=== PATIENT | female | born 1965 | race Caucasian/White ===

== ENCOUNTER → 2017-09-21 21:45 | Outpatient (CLI) | payer OTHER, SELFPAY ==
[2017-09-24 13:48] LABS: HPV Reflexed? NOT INDICATED
== END ==
PROVIDERS: Family Provider Internal Medicine; PCP Internal Medicine; Visit Provider Obstetrics & Gynecology
DX: Z12.4 Encounter for screening for malignant neoplasm of cervix (principal)
CPT/HCPCS: 88175; G0145

== ENCOUNTER → 2017-10-01 09:07 | Outpatient (CLI) | payer OTHER, SELFPAY ==
--- NOTE | 2017-10-01 09:11 | US_ITS ---
STUDY: ULTRASOUND BREAST - RIGHT REASON FOR EXAM: Female, 52 years old. Nipple discharge in the right breast. TECHNIQUE: Axial and longitudinal images of the RIGHT breast were performed with a high resolution ultrasound transducer. COMPARISON: Comparison is made with prior mammogram done earlier in the day. FINDINGS: RIGHT Breast: The retroareolar region of the right breast was examined by ultrasound. There is homogeneous fibroglandular tissue. No mass lesion is seen. US/Breast Limited Unilateral IMPRESSION: Unremarkable sonographic examination of the breast as described. ASSESSMENT CATEGORY: BIRADS Category 1: Negative. A letter regarding these results will be sent to the patient by the facility within 30 days. Electronically Signed: Dustin Campbell MD at 13:55 EDT Tel [phone], Service support ,
--- NOTE | 2017-10-01 09:11 | BI_ITS ---
MAMMOGRAPHY - UNILATERAL DIAGNOSTIC: RIGHT BREAST REASON FOR EXAM: Female, 52 years old. Right nipple discharge. PERTINENT HISTORY: Sister with breast cancer. Aunts with breast cancer. TECHNIQUE: Digital unilateral breast ralph (3D mammographic acquisition) in the CC and MLO projections. 2-D mediolateral oblique (MLO) and craniocaudad (CC) views of both breasts were obtained. CAD: Full Field Digital Mammography with Computer Added Detection was performed. COMPARISON: Comparison is made with prior examination of March 17, 2017. FINDINGS: Breast Composition: There are scattered areas of fibroglandular density. There are no dominant masses or suspicious calcifications. No other significant abnormalities are identified. There has been no significant change since the prior study. BI/DIAG MAMM W/CAD, UNILAT IMPRESSION: Stable unilateral diagnostic mammogram. With the patient's history of the right breast discharge, correlation with ultrasound is recommended. ASSESSMENT CATEGORY: BIRADS Category 0: Incomplete. Need additional imaging evaluation. A letter regarding these results will be sent to the patient by the facility within 30 days. Approximately 10% of breast cancers are not detected by mammography. A normal mammogram should not delay biopsy of a clinically suspicious abnormality. Electronically Signed: Dustin Campbell MD at 8:05 EDT Tel [phone], Service support ,
== END ==
PROVIDERS: Family Provider Internal Medicine; PCP Internal Medicine; Visit Provider Obstetrics & Gynecology
DX: N64.89 Other specified disorders of breast (principal)
CPT/HCPCS: 76642; 77061; 77065; G0279

== ENCOUNTER → 2021-04-18 16:19 | Outpatient (CLI) | payer OTHER, SELFPAY ==
--- NOTE | 2021-04-18 15:15 | EMB_PTH ---
PATIENT: GAVIN HEBERT LOC: [facility] U#:[id number] AGE/SX: 60/F ROOM: RE04/18/[address]: Dr. Justin Giles MD : 1965 BED: DIS: SPEC #: [id number] RECD: 04/18/21 16:35 STATUS: CHRISTIANO REMartin #: [id number] LUCILA: 04/18/21 15:[address]: Justin Giles DEPT: SURGICAL PATHOLOGY RECD BY: Mary Frias ENTERED: 04/19/21 08:42 SP TYPE: ENDOM BX/C IGGY DR: Dr. Gurmeet Hackett MD Tissues: Endometrium, NOS Procedures: Surgery Specimen Level IV HEADER OPERATION: Endometrial biopsy PRE-OP DIAGNOSIS: N95.0 TISSUE SUBMITTED: Endometrial biopsy MICROSCOPIC DIAGNOSIS Endometrial biopsy: Scant strips of benign endometrial epithelium, blood and mucous. See comment. DARON:clayton 04/22/2021 COMMENT The specimen predominantly consists of blood and mucous. The findings are consistent with atrophic endometrium. Correlation with clinical findings and appropriate follow up are necessary. MICROSCOPIC DESCRIPTION Slides are reviewed. GROSS DESCRIPTION Received in fixative is one container labeled with the patient's name and designated EM biopsy. The specimen consists of multiple fragments of hemorrhagic mucoid tissue that in aggregate measure 1.5 x 1 x 0.2 cm. The specimen is totally submitted in one cassette. / SJ:clayton 04/19/21 TC:4 CPT: 37434
[2021-04-24 16:14] LABS: HPV Reflexed? NOT INDICATED
== END ==
PROVIDERS: PCP Internal Medicine; Visit Provider Obstetrics & Gynecology
DX: N95.0 Postmenopausal bleeding (principal); Z12.4 Encounter for screening for malignant neoplasm of cervix
CPT/HCPCS: 88175; 88305; G0145

== ENCOUNTER → 2021-05-13 11:58 | Outpatient (CLI) | payer OTHER, SELFPAY ==
--- NOTE | 2021-05-13 12:01 | BI_ITS ---
MAMMOGRAPHY - BILATERAL SCREENING REASON FOR EXAM: Female, 55 years old. Routine annual screening examination. PERTINENT HISTORY: Sister with breast cancer. Aunts with breast cancer. Status post left stereotactic breast biopsy. TECHNIQUE: Digital bilateral breast marta (3D mammographic acquisition) in the CC and MLO projections. 2-D mediolateral oblique (MLO) and craniocaudad (CC) views of both breasts were obtained. CAD: Full Field Digital Mammography with Computer Added Detection was performed. COMPARISON: Comparison is made with prior examination dated 01/11/2017 and 03/17/2017. FINDINGS: Breast Composition: There are scattered areas of fibroglandular density. There are no dominant masses or suspicious calcifications. A tissue clip marker is once again seen in the deep slightly upper medial portion of the left breast. No other significant abnormalities are identified. There has been no significant change since the prior study. BI/SCRN MAMM (CAD)W/MARTA BILAT IMPRESSION: Stable bilateral screening mammogram. Yearly follow-up mammogram recommended. (A) ASSESSMENT CATEGORY: BIRADS Category 2: Benign. A letter regarding these results will be sent to the patient by the facility within 30 days. Approximately 10% of breast cancers are not detected by mammography. A normal mammogram should not delay biopsy of a clinically suspicious abnormality. [id number] Electronically Signed: Dustin Campbell MD at 13:15 EST , Service support ,
== END ==
PROVIDERS: PCP Internal Medicine; Referring Provider Obstetrics & Gynecology; Visit Provider Obstetrics & Gynecology
DX: Z12.31 Encounter for screening mammogram for malignant neoplasm of breast (principal)
CPT/HCPCS: 77063; 77067

== ENCOUNTER 2021-07-03 22:21 | Emergency (ER) | payer OTHER, SELFPAY ==
[2021-07-03 22:22] VITALS: BP 128/80; PULSE 92; RESP 18; TEMP 35.8; O2SAT 93; BMI 35.7
--- NOTE | 2021-07-03 22:45 | CT_ITS ---
STUDY: CT ABDOMEN AND PELVIS WITHOUT CONTRAST REASON FOR EXAM: Female, 56 years old. Kidney Stone RADIATION DOSAGE (If Supplied By Facility): CTDIvol = ( 21.38 ) mGy, DLP = ( 1116.24 ) mGycm TECHNIQUE: Transaxial images were obtained from the dome of the diaphragm to the symphysis pubis without oral contrast, and without intravenous contrast. Sagittal and coronal images were reconstructed. Individualized dose optimization techniques were used for this CT. COMPARISON: None. FINDINGS: Subtle bibasilar airspace disease. The visualized portions of the heart are within normal limits. Normal liver. Normal gallbladder and extrahepatic biliary system. Normal spleen. Normal pancreas. Normal bilateral adrenal glands. Mild to moderate right hydronephrosis and moderate hydroureter. There are 2 stones in the distal right ureter, 1 at the UVJ measuring 13 x 10 mm and the second just behind it measuring 6.3 x 6.6 mm. Punctate nonobstructing left-sided nephroliths measuring between 3 and 6 mm. Normal visualized stomach. Normal small intestine. There are multiple colonic diverticula consistent with diverticulosis. The appendix is visualized and appears normal. Normal abdominal aorta. Normal inferior vena cava. Normal retroperitoneum. Normal urinary bladder. Normal visualized uterus. Normal abdominal wall. Normal osseous structures. CT/Abdomen/Pelvis without Cont IMPRESSION: Right-sided urolithiasis with stones at the distal right ureter and UVJ as detailed above. Nonobstructing left-sided nephrolithiasis Electronically Signed: Tanvir Fraga DO at 23:40 EST Tel , Service support ,
[2021-07-03 22:57] LABS: Absolute Lymphocyte Count 1.29 X10^3/uL (0.83-4.51); Absolute Neutrophil Count 6.1 X10^3/uL (2.0-7.7); Basophil# 0.03 X10^3/uL; Basophil% 0.4 % (0-1); Eosinophil# 0.17 X10^3/uL; Hematocrit 41.5 % (37-47); Hemoglobin 13.3 g/dL (12.0-15.0); Lymphocyte # 1.29 X10^3/ul (0.83-4.51); Lymphocyte % 15.4 % (19-41); Mean Corpuscular Hgb 28.3 pg (27.0-32.0); Mean Corpuscular Volume 88.3 fL (81-99); Mean Platelet Vol. 9.2 fl (6.2-12.0); Monocyte# 0.72 X10^3/uL; Monocyte% 8.6 % (0-10); NRBC Flagged by Analyzer 0 % (0-5); Neutrophil # 6.14 X10^3/uL (2.7-7.7); Neutrophil % 73.4 % (47-70); Platelet Count 241 K/mm3 (150-450); RBC Distribution Width CV 13.7 % (11.6-14.6); RBC Distribution Width SD 44.5 fl (35.1-43.9); White Blood Count 8.4 K/mm3 (4.4-11.0)
[2021-07-03 22:59] LABS: Bacteria 0 SEEN /hpf (None Seen); Mucous, Urine 0 SEEN /hpf (<or=2+)
[2021-07-03 23:00] LABS: Color, Urine Yellow (Yellow); Glucose, Dipstick Normal (Normal); Ketone-Dipstick Negative (Negative); Leukocyte Esterase-Dipstick 500 /ul (Negative); Nitrite-Dipstick Negative (Negative); Occult Blood-Urine 250 /ul (Negative); Protein-Dipstick 30 mg/dl (Negative); Specific Gravity, Urine 1.025 (1.002-1.030); Urine Bilirubin Dipstick Negative (Negative); Urine Clarity Sl. Cloudy (Clear); Urine Urobilinogen Normal (Normal)
--- NOTE | 2021-07-03 23:02 | EDS_ITS ---
HPI History of Present Illness Chief Complaint: Flank Pain Informant: patient Narrative Narrative: Worsening nontraumatic right flank pain since yesterday radiating to the right side. Increasing pain this evening causing nausea. Took ibuprofen 400 mg 2 hours ago currently subsiding. Urine frequency for 2 days. Saw urgent care today states urine noted red blood cells and elevated white blood cell she is placed on Macrobid status post 1 dose. No fevers. Reports history of similar presentation with her kidney stones a couple years ago requiring ureteral stent and lithotripsy by Dr. Au. Denies history of gastric ulcers or kidney injury. Currently symptoms are mild. Prior similar symptoms: Yes [facility] Medical History (Updated 07/03/21 @ 23:[address] Korey Cade, DO) Kidney stone on right side Ureteral calculi Ureterocele, congenital Home Medications albuterol sulfate 1 - 2 puff INHALATION Q4H PRN PRN 06/11/17 [History Last Taken Unknown] cholecalciferol (vitamin D3) 1,000 unit PO DAILY 06/11/17 [History Last Taken Unknown] coenzyme [id number] E 1 ea PO DAILY 06/11/17 [History Last Taken Unknown] doxycycline monohydrate 100 mg PO BID 06/11/17 [History Last Taken Unknown] fluticasone propion-salmeterol 1 puff IH BID 06/11/17 [History Last Taken 07/08/17 07:00] lovastatin 10 mg PO DAILY 06/11/17 [History Last Taken Unknown] montelukast 10 mg PO DAILY 06/11/17 [History Last Taken Unknown] multivitamin 1 ea PO DAILY 06/11/17 [History Last Taken Unknown] omega-3 fatty acids-fish oil 1 ea PO DAILY 06/11/17 [History Last Taken Unknown] prednisone 10 mg PO 06/11/17 [History Last Taken Unknown] ciprofloxacin HCl 500 mg PO BID #6 tab 07/08/17 [Rx Last Taken Unknown] hydrocodone-acetaminophen 1 ea PO Q4H PRN PRN #14 tab 07/08/17 [Rx Last Taken Unknown] phenazopyridine 100 mg PO TID #12 tab 07/08/17 [Rx Last Taken Unknown] nitrofurantoin monohydrate/macrocrystals 100 mg capsule 100 mg PO Q12H 5 Days #10 cap 07/03/21 [Rx Last Taken Unknown] ondansetron 4 mg PO Q6H PRN #10 tab 07/03/21 [Rx Last Taken Unknown] oxycodone-acetaminophen [Percocet] 1 tab PO Q6H PRN 3 Days #12 tab 07/03/21 [Rx Last Taken Unknown] Allergy/AdvReac Type Severity Reaction Status Date / Time terbutaline sulfate Allergy Other Verified 11/16/17 13:03 [From [facility]] Surgical History S/P breast biopsy (~02/2017) Social History Smoking Status: Never smoker ROS ROS ED Constitutional Constitutional ED: Denies chills, fever(s) or sweats Eyes Eyes: Denies change in vision ENT ENT ED: Denies dysphagia or sore throat Cardiovascular Cardiovascular: Denies chest pain, leg edema, palpitations or racing heartbeat Respiratory/Chest Respiratory/Chest: Denies cough, dyspnea or dyspnea on exertion Gastrointestinal Gastrointestinal: Denies abdominal pain, diarrhea, nausea or vomiting Genitourinary Genitourinary ED: Denies dysuria, hematuria or urinary frequency Musculoskeletal Musculoskeletal: Reports back pain; Denies extremity pain or neck pain Integumentary Denies rash or wounds Neurologic Neurologic: Denies headache(s), paresthesias or weakness EXAM Physical Exam Const Vital Signs: 07/03/21 22:22 Temperature 96.5 F L Temperature Source Temporal Pulse Rate 92 Respiratory Rate 18 Blood Pressure 128/80 H Blood Pressure Mean 96 Pulse Ox 93 Oxygen Delivery Method Room Air Positive well nourished and well developed General Appearance ED: well developed and NAD HEENT Reports moist mucous membranes normocephalic and atraumatic Eyes PERRL, EOMs intact bilaterally and conjunctivae normal General Eye ED: Yes normal appearance of both eyes Neck no lymphadenopathy and supple General: Negative for tenderness Chest Wall Chest: Negative for tenderness Resp normal respiratory effort and normal air movement Effort and Inspection: symmetric chest movement; Negative for respiratory distress Cardio regular rate, regular rhythm and no murmurs Peripheral Pulses: pulses 2+ throughout GI normal to inspection, nondistended, normoactive bowel sounds and non-tender Palpation: Negative for guarding or rebound tenderness present Back/Spine no CVA tenderness and no thoracic nor lumbar tenderness Back/Spine Narrative: No rash General Back: Negative for CVA tenderness Extremity normal to inspection General Extremety ED: Negative for edema or tenderness General Extremity: Negative for edema Neuro oriented x3 and no sensory deficits noted Sensorium / Orientation: awake and alert Skin no rashes or lesions noted and no wounds MDM MDM MDM Narrative Medical decision making narrative: Patient nontoxic symptoms subsided on my evaluation. History of similar presentation with renal stones. Labs normal white count 8.4 creatinine 0.77 urine noted leukocytes and WBCs. Culture sent. Currently on Macrobid. CT scan pending final read however my evaluation notes multiple stones right ureter mid ureter 5 mm causing hydro-. There is 2 small distal ones also 2 large ones in the bladder. Reevaluation if remained symptom- free. Discussed results with the patient. She was managed by Dr. Au all looks like back in June 2017 with lithotripsy and ureteral stent. I discussed with him with the findings. Discussed results with the urine infection. She is nontoxic. He states she will call the office tomorrow to be seen. Return precautions discussed. Additional prescription for Zofran and Percocet written with meds to beds to go home with. She will continue ibuprofen 600 mils every 6 hours. She will finish her Macrobid. Prior to discharge radiology results reported bladder calcification is at the UVJ at 1.3 cm, proximal this was a 6 mm stone. This was reported to the patient, she is seeing urology tomorrow for likely intervention that can be required. Patient is being discharged under pandemic conditions under declared global, national and state disaster activation, with limited medical resources. Patient and community understands this. Results discussed in layman's terms to the patient satisfaction. All questions answered in layman's terms. Patient understands importance of follow-up care as directed. Patient has been instructed to return to the ED immediately if new symptoms, problems, or questions occur. We mutually agree with the plan of disposition. The patient understand that they may call or return with any questions or concerns at any time. Lab Data Attestation: I reviewed the patient's lab results. Labs: Laboratory Results - last 24 hr 07/03/21 07/03/21 07/03/21 22:34 22:40 22:40 WBC 8.4 RBC 4.70 Hgb 13.3 Hct 41.5 MCV 88.3 MCH 28.3 MCHC 32.0 RDW Std Deviation 44.5 H RDW Coeff of Melody 13.7 Plt Count 241 MPV 9.2 Immature Gran % (Auto) 0.200 Neut % (Auto) 73.4 H Lymph % (Auto) 15.4 L [place] % (Auto) 8.6 Eos % (Auto) 2.0 Baso % (Auto) 0.4 Absolute Neuts (auto) 6.1 Absolute Lymphs (auto) 1.29 Nucleated RBC % 0 Sodium 140 Potassium 3.8 Chloride 105 Carbon Dioxide 29.0 Anion Gap 6 BUN 16 Creatinine 0.77 Estim Creat Clear Calc 74.28 Est GFR (MDRD) Af Amer 100 Est GFR (MDRD) Non-Af 83 BUN/Creatinine Ratio 20.8 H Glucose 111 H Calcium 9.2 Urine Color Yellow Urine Clarity Sl. Cloudy Urine pH 5.0 Ur Specific Maryneal 1.025 Urine Protein 30 H Urine Glucose (UA) Normal Urine Ketones Negative Urine Occult Blood 250 H Urine Nitrite Negative Urine Bilirubin Negative Urine Urobilinogen Normal Ur Leukocyte Esterase 500 H Urine RBC 0-5 SEEN Urine WBC 25-50 SEEN Ur Squamous Epith Cells 0-5 SEEN Urine Bacteria 0 SEEN Urine Mucus 0 SEEN Radiography Diagnostic Testing: Clinical Impression(s) from Imaging Studies Abdomen/Pelvis CT 07/03/21 22:45 IMPRESSION: Right-sided urolithiasis with stones at the distal right ureter and UVJ as detailed above. Nonobstructing left-sided nephrolithiasis Electronically Signed: Tanvir Fraga DO at 23:40 EST Tel , Service support , Discharge Plan Triage Chief Complaint: Flank Pain ED Provider: Korey Cade Dx/Rx/DC Orders Clinical Impression: Ureteral calculi, Kidney stone on right side, UTI (urinary tract infection) Instructions: Urinary Tract Infections in Women, ED Kidney Stone w/ Colic Prescriptions: New oxycodone-acetaminophen [Percocet] 5-325 mg tablet 1 tab PO Q6H PRN (Reason: pain) 3 Days Qty: 12 RF: 0 ondansetron 4 mg tablet,disintegrating 4 mg PO Q6H PRN (Reason: nausea and vomiting) Qty: 10 RF: 0 No Action nitrofurantoin monohyd/m-cryst [Macrobid] 100 mg capsule 100 mg PO Q12H 5 Days Qty: 10 RF: 0 multivitamin 1 EACH tablet 1 ea PO DAILY RF: 0 prednisone 10 MG tablet 10 mg PO RF: 0 lovastatin 10 MG tablet 10 mg PO DAILY RF: 0 doxycycline monohydrate 100 MG capsule 100 mg PO BID RF: 0 montelukast 10 MG tablet 10 mg PO DAILY RF: 0 fluticasone propion-salmeterol 1 EACH blister with device 1 puff IH BID RF: 0 albuterol sulfate 1 INHALER inhaler 1 - 2 puff INHALATION Q4H PRN PRN (Reason: Sob &/Or Wheezing) RF: 0 cholecalciferol (vitamin D3) 1,000 UNIT capsule 1,000 unit PO DAILY RF: 0 omega-3 fatty acids-fish oil 1 EACH capsule 1 ea PO DAILY RF: 0 coenzyme I20-ijiomab E 1 EACH capsule 1 ea PO DAILY RF: 0 hydrocodone-acetaminophen 1 EACH tablet 1 ea PO Q4H PRN PRN (Reason: Pain) Qty: 14 RF: 0 ciprofloxacin HCl 500 MG tablet 500 mg PO BID Qty: 6 RF: 0 phenazopyridine 100 MG tablet 100 mg PO TID Qty: 12 RF: 0 Primary Care Provider: Gurmeet Hackett Referrals: Gurmeet Hackett MD [Primary Care Provider] - Monty Au MD [STAFF PHYSICIAN] - 1 Day Activity Restrictions/Additional Instructions: Multiple kidney stones right side, culprit 5 mm mid ureter with hydronephrosis. Finish your Macrobid. Take ibuprofen 6 mg every 6 hours. Use Zofran and Percocet as needed. Call Dr. Au tomorrow to be seen in the office. Disposition Disposition: Home, Self Care Discharge Date/Time: 07/04/21 00:31
[2021-07-03] MEDS: 0.9% Normal Saline 1,000 ML 250 ML IV (23:03)
[2021-07-03 23:05] LABS: Anion Gap 6 (5-15); BUN 16 mg/dL (7-18); BUN/Creat Ratio 20.8 RATIO (10-20); Calcium,Total 9.2 mg/dL (8.5-10.1); Chloride 105 mmol/L (98-107); Creatinine, Serum 0.77 mg/dL (0.55-1.02); EST Glomerular Filtration Rate 83 mL/min (>60); Est Glom Filt Rate - Afr Amer 100 mL/min (>60); Estimated Creatinine Clearance 74.28 ml/min; Glucose 111 mg/dL (74-106); Potassium 3.8 mmol/L (3.5-5.1); Sodium Level 140 mmol/L (136-145)
[2021-07-03 23:06] LABS: White Blood Cells 25-50 SEEN /hpf (0-5)
[2021-07-03 23:07] LABS: Red Blood Cells-Urine 0-5 SEEN /hpf (0-5); Squamous Epithelial Cells - UA 0-5 SEEN /hpf (5-10)
== END 2021-07-04 00:31 | disposition home or self-care (01) ==
PROVIDERS: Emergency Provider Emergency Medicine; PCP Internal Medicine; Visit Provider Emergency Medicine
DX: N20.2 Calculus of kidney with calculus of ureter (principal); N39.0 Urinary tract infection, site not specified; Z79.899 Other long term (current) drug therapy
CPT/HCPCS: 74176; 80048; 81001; 85025; 87086; 87088; 99284; J7030; A4216

== ENCOUNTER → 2022-11-17 | Outpatient (CLI) | payer OTHER, SELFPAY ==
--- NOTE | 2022-11-17 10:40 | BI_ITS ---
MAMMOGRAPHY - BILATERAL SCREENING REASON FOR EXAM: Female, 57 years old. Routine annual screening examination. PERTINENT HISTORY: Sister with breast cancer. Aunts with breast cancer. History of left stereotactic breast biopsy. TECHNIQUE: Digital bilateral breast marta (3D mammographic acquisition) in the CC and MLO projections. 2-D mediolateral oblique (MLO) and craniocaudad (CC) views of both breasts were obtained. Cleavage views were also utilized. CAD: Full Field Digital Mammography with Computer Added Detection was performed. COMPARISON: Mammogram from 05/13/2021, 10/31/2017 FINDINGS: Breast Composition: There are scattered areas of fibroglandular density. There are no dominant masses or suspicious calcifications. Punctate calcifications in the left upper outer breast are stable since 2020 and likely benign. Additional stable scattered benign-appearing bilateral breast calcifications. Stable biopsy marker in the left breast. No other significant abnormalities are identified. There has been no significant change since the prior study. BI/SCRN MAMM (CAD)W/MARTA BILAT IMPRESSION: Stable bilateral screening mammogram. Yearly follow-up mammogram recommended. (A) ASSESSMENT CATEGORY: BIRADS Category 2: Benign. A letter regarding these results will be sent to the patient by the facility within 30 days. Approximately 10% of breast cancers are not detected by mammography. A normal mammogram should not delay biopsy of a clinically suspicious abnormality. Electronically Signed: Robbie Tucker MD at 15:47 EDT ,
== END | disposition home or self-care (01) ==
LOC: OPBI 10:38
PROVIDERS: PCP Internal Medicine; Referring Provider Obstetrics & Gynecology; Visit Provider Obstetrics & Gynecology
DX: Z12.31 Encounter for screening mammogram for malignant neoplasm of breast (principal); Z80.3 Family history of malignant neoplasm of breast
CPT/HCPCS: 77063; 77067

== ENCOUNTER → 2024-06-23 | Outpatient (CLI) | payer OTHER, SELFPAY ==
--- NOTE | 2024-06-23 09:42 | VDLE_ITS ---
Reason For Study: Swelling RIGHT LEFT GSV is normal. CFV is compressible, spontaneous, phasic, CFV is compressible, spontaneous, phasic, competent, and demonstrates normal competent and demonstrates normal augmentation. augmentation. Femoral Vein is partially COMPRESSIBLE throughout with venous flow. Vein wall thickening noted in the Pop V. POP V is compressible, spontaneous, phasic, competent and demonstrates normal augmentation. T/P Trunk is compressible. PTV is compressible. RT PerV is compressible. Procedure This is a venous duplex using B-mode, color flow and spectral Doppler. Exam performed in department. VL/Venous Duplex US, Unilateral Interpretation Summary Chronic deep vein thrombosis is noted in the right femoral vein, popliteal vein . Ordering Physician: Alexandra Del Valle Referring Physician: Alexandra Del Valle Performed By: Kendal Marcum RVT and Student
== END | disposition home or self-care (01) ==
PROVIDERS: PCP Internal Medicine; Referring Provider Physician Assistant; Visit Provider Physician Assistant
DX: M79.89 Other specified soft tissue disorders (principal); I82.409 Acute embolism and thrombosis of unspecified deep veins of unspecified lower extremity
CPT/HCPCS: 93971

== ENCOUNTER → 2024-08-01 | Outpatient (CLI) | payer OTHER, SELFPAY ==
--- NOTE | 2024-08-01 13:07 | BI_ITS ---
PROCEDURE: SCRN MAMM (CAD)W/MARTA BILAT REASON FOR EXAM: F, Age 59 y/o, sister with breast cancer. Aunts with breast cancer. History of prior left stereotactic breast biopsy. TECHNIQUE: Bilateral screening digital breast tomosynthesis with 2D and 3D images. Computer aided detection. COMPARISON: Prior exam(s) dating back to November 17, 2022.. FINDINGS: There are scattered areas of fibroglandular density. A tissue clip marker is seen in the central medial aspect of the left breast. No suspicious masses, areas of developing architectural distortion, or suspicious calcifications. Stable examination. BI/SCRN MAMM (CAD)W/MARTA BILAT IMPRESSION: BI-RADS 2: BENIGN. RECOMMEND ANNUAL MAMMOGRAPHIC SCREENING. Follow-up code: Routine Follow-up The patient will be notified of the results by letter. Reading Location: [place] [id number]
== END | disposition home or self-care (01) ==
LOC: OPBI 13:06
PROVIDERS: PCP Internal Medicine; Referring Provider Obstetrics & Gynecology; Visit Provider Obstetrics & Gynecology
DX: Z12.31 Encounter for screening mammogram for malignant neoplasm of breast (principal)
CPT/HCPCS: 77063; 77067

== ENCOUNTER → 2024-09-07 | Outpatient (CLI) | payer OTHER, SELFPAY ==
--- NOTE | 2024-09-07 09:07 | BI_ITS ---
PROCEDURE: DIAG MAMM W/CAD, UNILAT REASON FOR EXAM: MICROCALC 59-year-old female presents for a follow-up examination of the finding seen in the left breast on examination of 08/01/2024. Family history of breast cancer in 3 maternal aunts. TECHNIQUE: Bilateral diagnostic digital breast tomosynthesis with 2D and 3D images. Computer aided detection. COMPARISON: 08/01/2024, 11/17/2022 FINDINGS: There are scattered areas of fibroglandular density. Follow-up examination performed for the calcifications seen in the left breast on examination of 08/01/2024. On the present examination, there are a small group of fine pleomorphic calcifications in the upper-outer left breast at middle depth, with total span measuring up to 3 cm. BI/DIAG MAMM W/CAD, UNILAT IMPRESSION: Suspicious calcifications in the upper-outer left breast. Recommend tissue madeline pling with stereotactic/tomosynthesis guided core needle biopsy. BI-RADS 4: SUSPICIOUS ABNORMALITY. Follow-up code: Biopsy Recommended Reading Location: [id number]
== END | disposition home or self-care (01) ==
PROVIDERS: PCP Internal Medicine; Referring Provider Obstetrics & Gynecology; Visit Provider Obstetrics & Gynecology
DX: R92.0 Mammographic microcalcification found on diagnostic imaging of breast (principal)
CPT/HCPCS: 77065

== ENCOUNTER → 2024-09-13 | Outpatient (CLI) | payer OTHER, SELFPAY ==
--- NOTE | 2024-09-13 12:33 | OP.PCM_ITS ---
Operative Report (Standard) Operative Information Date of Procedure: 09/13/24 Pre-Operative Diagnosis: Left breast microcalcifications Post-Operative Diagnosis: same Surgery/Procedure Performed: Stereotactic guided left breast core biopsy precision mechanical instrument maker: No Type of Anesthesia: Local Procedure Start Time: 12:05 Procedure Stop Time: 12:20 Select all DRAINS/GRAFTS/IMPLANTS that apply: Implanted device Implanted device details: ashleeostar iona Estimated Blood Loss: < 10 cc Specimen collected: Yes Description of specimen(s) removed: left microcalcifications upper lateral Description of surgery: Procedure: Left stereotactic core biopsy Indications: 59 year-old female with microcalcifications in the upper lateral of the left breast. Risk benefits were discussed the patient and she elected to proceed with stereotactic core biopsy with clip placement Description of procedure: Patient was brought into the mammography suite and laid prone on the stereotactic table. A timeout was completed verifying correct patient, procedure, site, specially, prior to beginning procedure. The left breast was prepped and draped in usual sterile fashion and using local anesthesia was obtained with 1% lidocaine with epi. Patient's left breast was positioned and placed into compression. Initial film showed calcifications are in the center of the compression paddle. 15? views were then taken. The calcifications were localized. The left breast was prepped draped in usual sterile fashion. An 8-gauge mammotome was set up according to the digital coordinates. The tract of the mammotome was anesthetized with local anesthesia and an incision was made with the 11 blade scalpel at the entry site. The mammotome was advanced to the prefire state. Pre-prior films were checked and verified. The mammotome was fired. Post fire films were also checked and verified. Biopsies were taken from left. The specimen was x-rayed and the majority of the calcifications were within the specimen. Mammotome barbell clip was placed at the 12 o'clock position. The mammotome was removed from the breast. An additional films were taken which showed the majority of the calcifications were removed and a clip was in place. Pressure was held for hemostasis. Once hemostasis was assured the wound was dressed with Steri-Strips and OpSite. The patient tolerated the procedure well and was discharged from the mammography suite good condition. Surgical Findings: see op report Complications Complications: No
--- NOTE | 2024-09-13 14:20 | BREAST_PTH ---
PATIENT: GAVIN HEBERT LOC: [facility] U#:[id number] AGE/SX: 59/F ROOM: RE09/13/[address]: Dr. Debra Hansen MD : 1965 BED: DIS: 09/13/2024 SPEC #: [id number] RECD: 09/13/24 14:54 STATUS: CHRISTIANO REQ #: [id number] LUCILA: 09/13/24 14:[address]: Debra Hansen DEPT: SURGICAL PATHOLOGY RECD BY: Rayo Burnett ENTERED: 09/13/24 14:54 SP TYPE: BREAST OTHR DR: Dr. 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 * Estrogen Receptor: positive (95%, strong intensity). * Progesterone Receptor: positive (90%, intermediate to strong intensity). Note: IHC for CK5/6 (A1, A2, A3, A4) supports the histologic impression of DCIS. MICROSCOPIC DESCRIPTION Slides are reviewed. These tests were developed and their performance characteristics determined by [facility]. They may not have been cleared or approved by the [place]. Food and Drug Administration. The FDA has determined that such clearance or approval is not necessary. The above immunohistochemical/dualISH markers are ordered and reviewed by the Pathologist. GROSS DESCRIPTION A. Received in fixative is one container labeled with the patient's name and designated Left breast core tissue. The specimen consists of multiple fragments of breast tissue measuring in aggregate 1.5 x 1 x 0.5cm. The entire specimen is submitted in four cassettes. 09/13/2024 CPT:50082, [id number], [id number] ADDENDUM ADDENDUM ADDENDUM ADDENDUM ADDENDUM ADDENDUM ADDENDUM ADDENDUM ADDENDUM ADDENDUM ADDENDUM ADDENDUM 10/03/2024 11:37 ADDENDUM 10/03/2024 11:37 ADDENDUM 10/03/2024 11:37 ADDENDUM 10/03/2024 11:37 ADDENDUM 10/03/2024 11:37 This addendum is added to incorporate an outside pathology consultation report. The case was examined at [facility] by Dr. Morales (#[id number]) and the following diagnosis was rendered. A. Left breast calcifications, stereotactic core biopsy: Ductal carcinoma in-situ (5mm in this core biopsy); high nuclear grade, with focal necrosis and microcalcifiations. Outside immunohistochemical stains reviewed: Estrogen receptor positive (95%). Please see complete above mentioned consultation report in EMR
== END | disposition home or self-care (01) ==
PROVIDERS: PCP Internal Medicine; Referring Provider Surgery; Visit Provider Surgery
DX: C50.912 Malignant neoplasm of unspecified site of left female breast (principal); R92.1 Mammographic calcification found on diagnostic imaging of breast
CPT/HCPCS: 19081; 88305; 88341; 88342